=== PATIENT | female | born 1970 | race Caucasian/White ===

== ENCOUNTER 2024-06-30 13:02 | Emergency (ER) | payer OTHER, MEDICAID ==
[~2024-06-30] VITALS: Ht 157.5 cm; Wt 82.6 kg
[2024-06-30 13:30] VITALS: PULSE 55; RESP 15; TEMP 98; O2SAT 100
[2024-06-30] MEDS: KETOROLAC TROMETHAMINE 60 MG/2 ML VIAL IM ONE (14:30)
[2024-06-30] MEDS: CYCLOBENZAPRINE HCL 10 MG TAB PO ONE (14:30)
[2024-06-30] MEDS ORDERED: CYCLOBENZAPRINE HCL 10 MG TAB ONE (14:31)
[2024-06-30] MEDS ORDERED: KETOROLAC TROMETHAMINE 60 MG/2 ML VIAL ONE (14:31)
[2024-06-30] MEDS ORDERED: CYCLOBENZAPRINE10 MG PO (15:01)
== END 2024-06-30 16:09 | disposition home or self-care (01) ==
LOC: ER 13:18
DX: S30.0XXA Contusion of lower back and pelvis, initial encounter (principal); M25.551 Pain in right hip; W01.0XXA Fall on same level from slipping, tripping and stumbling without subsequent striking against object, initial encounter; Y93.01 Activity, walking, marching and hiking; Y92.89 Other specified places as the place of occurrence of the external cause
CPT/HCPCS: 72110; 73502; 99283; J1885

== ENCOUNTER 2024-10-09 09:51 | Emergency (ER) | payer MEDICARE, MEDICAID ==
[~2024-10-09] VITALS: Ht 157.5 cm; Wt 82.1 kg
[~2024-10-09 09:51] MED LIST: CYCLOBENZAPRINE10 MG PO
[2024-10-09 09:58] VITALS: TEMP 98.5
[2024-10-09 10:29] LABS: BASOPHILS # (AUTO) 0.1 (0.0-0.1); BASOPHILS % 0.8 % (0.0-1.0); EOSINOPHILS # (AUTO) 0.1 (0.0-0.4); HEMATOCRIT 44.4 % (34.2-44.1); LYMPHOCYTES % 30.7 % (18.0-39.1); MEAN CORPUSCULAR HEMOGLOBIN 28.8 pg (28-32); MEAN CORPUSCULAR HGB CONC 33.8 g/dL (31-35); MEAN CORPUSCULAR VOLUME 85.4 fL (81-99); MONOCYTES # (AUTO) 0.5 (0.2-0.8); NEUTROPHILS # (AUTO) 3.9 (2.1-6.9); NEUTROPHILS % 58.2 % (38.7-80.0); PLATELET COUNT 190 x10e3/uL (140-360); RED CELL DISTRIBUTION WIDTH 13.1 % (11.7-14.4); WHITE BLOOD COUNT 6.64 x10e3/uL (4.8-10.8)
[2024-10-09] MEDS: ONDANSETRON HCL INJ 2MG/ML 2ML 2 MG/ML VIAL IV STA (10:35)
[2024-10-09] MEDS: FAMOTIDINE 20 MG/2 ML VIAL IV STA (10:36)
[2024-10-09] MEDS: SODIUM CHLORIDE 0.9% 1000ML 1,000 ML IV ONE (10:36)
[2024-10-09 10:50] LABS: BILIRUBIN,URINE NEGATIVE (NEGATIVE); CLARITY,URINE CLEAR (CLEAR); COLOR,URINE YELLOW (YELLOW); GLUCOSE, URINE 500 (NEGATIVE); KETONES,URINE NEGATIVE (NEGATIVE); LEUKOCYTE ESTERASE ,URINE NEGATIVE (NEGATIVE); NITRITE,URINE NEGATIVE (NEGATIVE); PH,URINE 6 (5 - 7); PROTEIN,URINE DIPSTICK NEGATIVE (NEGATIVE); URINE UROBILINOGEN 0.2 mg/dL (0.2 - 1)
[2024-10-09 10:54] LABS: ALBUMIN 3.8 g/dL (3.5-5.0); ANION GAP 18.7 mmol/L (8-16); BILIRUBIN,TOTAL 0.4 mg/dL (0.2-1.2); CREATININE, SERUM 1.03 mg/dL (0.57-1.11); POTASSIUM 4.7 mmol/L (3.5-5.1); TOTAL PROTEIN 7.8 g/dL (6.5-8.1)
[2024-10-09] MEDS: DONNATAL/LIDOCAINE/MAALOX 30 ML SUSP PO ONE (11:09)
[2024-10-09 11:19] LABS: BACTERIA,URINE RARE /HPF; EPITHELIAL CELLS,URINE RARE /LPF; RBC,URINE 0-5 /HPF (0-5); WBC,URINE (MAN) 0-5 /HPF (0-5)
[2024-10-09] MEDS ORDERED: LEXAPRO20 MG PO (11:38)
[2024-10-09] MEDS ORDERED: NADOLOL20 MG (11:38)
[2024-10-09] MEDS ORDERED: BUPROPION XL150 MG PO (11:38)
[2024-10-09] MEDS ORDERED: GLIPIZIDE5 MG PO (11:38)
[2024-10-09] MEDS ORDERED: LISINOPRIL10 MG PO (11:38)
[2024-10-09] MEDS ORDERED: NEURONTIN400 MG PO (11:38)
[2024-10-09] MEDS: HYDRALAZINE HCL 20 MG/ML VIAL IV STA (12:16)
[2024-10-09 13:02] VITALS: PULSE 79; RESP 19
[2024-10-09] MEDS ORDERED: CIPRO500 MG PO (13:15)
[2024-10-09] MEDS ORDERED: METRONIDAZOLE500 MG PO (13:15)
[2024-10-09] MEDS ORDERED: IOPAMIDOL 370 MG/ML 100 ML INFUS..BTL INJ ONE (13:15)
[2024-10-09] MEDS ORDERED: PANTOPRAZOLE SO40 MG PO (13:15)
[2024-10-09] MEDS ORDERED: ONDANSETRON ODT4 MG PO (13:16)
[2024-10-09 13:23] VITALS: BP 136/51; PULSE 72; O2SAT 98
== END 2024-10-09 13:35 | disposition home or self-care (01) ==
LOC: ER 10:02
DX: R10.11 Right upper quadrant pain (principal); K52.9 Noninfective gastroenteritis and colitis, unspecified; K25.9 Gastric ulcer, unspecified as acute or chronic, without hemorrhage or perforation; R11.2 Nausea with vomiting, unspecified; E11.65 Type 2 diabetes mellitus with hyperglycemia; I10 Essential (primary) hypertension; K76.9 Liver disease, unspecified; J44.9 Chronic obstructive pulmonary disease, unspecified; F17.210 Nicotine dependence, cigarettes, uncomplicated
CPT/HCPCS: 36415; 74177; 80053; 81001; 82948; 83690; 85025; 93005; 99284; J0360; J2405; J7030; Q9967